=== PATIENT | male | born 1930 | race Caucasian/White ===

== ENCOUNTER 2019-02-03 16:08 | Emergency (ER) | payer MEDICARE ==
[~2019-02-03] VITALS: Ht 172.7 cm; Wt 94.3 kg
[~2019-02-03 16:08] MED LIST: CETI10 PO; NEBI5 PO; PRED20 PO; [UNRECOGNIZED DRUG - REMARK]
== END 2019-02-03 16:28 | disposition home or self-care (01) ==
LOC: ER 16:08
DX: T16.1XXA Foreign body in right ear, initial encounter (principal); I10 Essential (primary) hypertension; Z79.899 Other long term (current) drug therapy
CPT/HCPCS: 69200; 99282-25

== ENCOUNTER 2019-04-17 19:02 | Emergency (ER) | payer MEDICARE, SELFPAY ==
[~2019-04-17] VITALS: Ht 172.7 cm; Wt 90.7 kg
[2019-04-17] MEDS ORDERED: Hydrochloroth12.5 MG PO (19:28)
== END 2019-04-17 20:32 | disposition home or self-care (01) ==
LOC: ER 19:02
DX: T16.1XXA Foreign body in right ear, initial encounter (principal); Z79.899 Other long term (current) drug therapy; I10 Essential (primary) hypertension; Z87.891 Personal history of nicotine dependence
CPT/HCPCS: 69200; 99282-25

== ENCOUNTER → 2020-01-16 | Outpatient (CLI) | payer MEDICARE, OTHER ==
[~2020-01-16] MED LIST changes: +Hydrochloroth12.5 MG PO
== END | disposition home or self-care (01) ==
LOC: PLD 11:56 → LAB SHORT 11:56
DX: L57.0 Actinic keratosis (principal)
CPT/HCPCS: 88305

== ENCOUNTER 2020-11-09 19:02 | Emergency (ER) | payer MEDICARE ==
[~2020-11-09] VITALS: Ht 170.2 cm; Wt 81.7 kg
[2020-11-09 19:31] LABS: BASOPHILS ABSOLUTE AUTO 0.04 K/mm3 (0.00-0.23); BASOPHILS PERCENT AUTO 0 % (0-2); EOSINOPHILS ABSOLUTE AUTO 0.04 K/mm3 (0.00-0.68); EOSINOPHILS PERCENT AUTO 0 % (0-6); Hematocrit 39.9 % (37.0-53.0); Hemoglobin 13.4 g/dL (13.5-17.5); IMMATURE GRAN ABSOLUTE AUTO 0.05 K/mm3 (0.00-0.10); IMMATURE GRAN PERCENT AUTO 0 % (0-1); LYMPHOCYTES ABSOLUTE AUTO 1.64 K/mm3 (0.84-5.20); LYMPHOCYTES PERCENT AUTO 13 % (21-46); MONOCYTES ABSOLUTE AUTO 1.78 K/mm3 (0.16-1.47); MONOCYTES PERCENT AUTO 14 % (4-13); Mean Corpuscular HGB 30.9 pg (26.0-34.0); Mean Corpuscular HGB Conc 33.6 g/dL (31.5-36.5); Mean Corpuscular Volume 92 fL (80-100); Mean Platelet Volume 9.7 fL (9.1-12.4); NEUTROPHILS ABSOLUTE AUTO 9.35 K/mm3 (1.96-9.15); NEUTROPHILS PERCENT AUTO 73 % (41-73); Platelet Count 186 K/mm3 (150-400); RDW Coefficient Variation 13.8 % (11.7-14.2); Red Blood Cell Count 4.34 M/mm3 (4.30-5.90)
[2020-11-09 19:50] LABS: Anion Gap 3 mmol/L (6-16); Blood Urea Nitrogen 20 mg/dL (8-24); Bun/Creatinine Ratio 18.7 (12.0-20.0); CO2, Blood 29 mmol/L (21-32); Calcium, Blood 8.6 mg/dL (8.5-10.1); Chloride, Blood 102 mmol/L (98-108); Creatinine, Blood 1.07 mg/dL (0.60-1.20); Glomerular Filtration Rate >60 (60-); Glucose, Blood 113 mg/dL (70-99); Potassium, Blood 3.6 mmol/L (3.5-5.5); Sodium, Blood 134 mmol/L (136-145); Troponin I <0.015 ng/mL (0.000-0.040)
== END 2020-11-09 22:02 | disposition home or self-care (01) ==
LOC: ER 19:02
PROVIDERS: Emergency Medicine
DX: G89.18 Other acute postprocedural pain (principal); M54.5 Low back pain; I10 Essential (primary) hypertension; Z79.899 Other long term (current) drug therapy; Z87.891 Personal history of nicotine dependence; W18.30XA Fall on same level, unspecified, initial encounter
CPT/HCPCS: 36415; 72131; 72192; 80048; 84484; 85025; 93005; 93010; 96374; 99284-25; J1170